=== PATIENT | female | born 1945 | race Caucasian/White ===

== ENCOUNTER 2018-08-26 08:08 | Outpatient (CLI) | payer MEDICARE, OTHER ==
--- NOTE | 2018-08-26 09:02 | BD ---
DEXA BONE MINERAL DENSITY STUDY: HISTORY: Asymptomatic menopausal state. COMPARISON: DEXA 08/10/2016. FINDINGS: Lumbar Spine: BMD (g/cm2) L1 0.723 T-Score: -2.4 -0.4 L2 0.910 T-Score: -1.1 1.1 L3 0.912 T-Score: -1.6 0.8 L4 0.922 T-Score: -1.3 1.1 L1-L4 0.876 T-Score: -1.6 0.7 WHO classification of osteopenia. Femoral Neck: 0.625 T-Score: -2.0 -0.1 Total Femur: 0.846 T-Score: -0.8 0.8 WHO classification osteopenia. TEN-YEAR FRACTURE RISK: Major osteoporotic fracture 12% and hip fracture 2.5%. Impression: Osteopenia with elevated fracture risk as above. POS: TPC
--- NOTE | 2018-08-26 09:05 | MMO ---
Bilateral MAMMO Bilat Diag [facility]. CLINICAL HISTORY: Patient is 73 years old and is seen for diagnostic exam. The patient has no family history of breast cancer. The patient has a history of Skin cancer in 2004. VIEWS: The views performed were: bilateral craniocaudal with tomosynthesis; bilateral mediolateral oblique with tomosynthesis; bilateral mediolateral with tomosynthesis; left mediolateral oblique; and left exaggerated craniocaudal. FILMS COMPARED: The present examination has been compared to prior imaging studies performed at [facility] on 10/26/2008, 03/09/2011, 06/17/2015 and 07/09/2016. MAMMOGRAM FINDINGS: There are scattered fibroglandular densities. There are no suspicious masses, suspicious calcifications, or new areas of architectural distortion. IMPRESSION: THERE IS NO MAMMOGRAPHIC EVIDENCE OF MALIGNANCY. A ROUTINE FOLLOW-UP MAMMOGRAM IN 1 YEAR IS RECOMMENDED. THE RESULTS OF THIS EXAM WERE SENT TO THE PATIENT. ACR BI-RADS Category 1 - Negative MAMMOGRAPHY NOTE: 1. A negative mammogram report should not delay a biopsy if a dominant of clinically suspicious mass is present. 2. Approximately 10% to 15% of breast cancers are not detected by mammography. 3. Adenosis and dense breasts may obscure an underlying neoplasm.
--- NOTE | 2018-08-26 10:35 | ULT ---
SOFT TISSUE ULTRASOUND LEFT AXILLA: HISTORY: Ultrasound of the left axilla was performed to assess palpable abnormality. FINDINGS: No sonographic abnormality identified. No evidence of mass, adenopathy, or cyst. IMPRESSION: Unremarkable soft tissue ultrasound left axilla. POS: OFF
== END 2018-08-26 08:09 | disposition home or self-care (01) ==
LOC: BICMAMMO 08:08
PROVIDERS: ATTEND Internal Medicine
DX: N63.21 Unspecified lump in the left breast, upper outer quadrant (principal); M79.622 Pain in left upper arm; Z78.0 Asymptomatic menopausal state; M85.859 Other specified disorders of bone density and structure, unspecified thigh
CPT/HCPCS: 76999; 77066; 77080; G0279

== ENCOUNTER 2019-08-28 10:57 | Outpatient (CLI) | payer MEDICARE ==
--- NOTE | 2019-08-28 12:14 | MMO ---
Bilateral MAMMO Bilat Screen [facility]. CLINICAL HISTORY: Patient is 74 years old and is seen for screening. The patient has no family history of breast cancer. The patient has a history of Skin cancer in 2004. VIEWS: The views performed were: bilateral craniocaudal with tomosynthesis; bilateral mediolateral oblique; and bilateral mediolateral oblique with tomosynthesis. FILMS COMPARED: The present examination has been compared to prior imaging studies performed at [facility] on 03/09/2011, 06/17/2015, 07/09/2016 and 08/26/2018. This study has been interpreted with the assistance of computer-aided detection. MAMMOGRAM FINDINGS: There are scattered fibroglandular densities. There are several stable intramammary lymph nodes seen in both breasts. There are no suspicious masses, suspicious calcifications, or new areas of architectural distortion. IMPRESSION: THERE IS NO MAMMOGRAPHIC EVIDENCE OF MALIGNANCY. A ROUTINE FOLLOW-UP MAMMOGRAM IN 1 YEAR IS RECOMMENDED. THE RESULTS OF THIS EXAM WERE SENT TO THE PATIENT. ACR BI-RADS Category 2 - Benign finding MAMMOGRAPHY NOTE: 1. A negative mammogram report should not delay a biopsy if a dominant of clinically suspicious mass is present. 2. Approximately 10% to 15% of breast cancers are not detected by mammography. 3. Adenosis and dense breasts may obscure an underlying neoplasm. Reported by: SADI GORDILLO MD Electonically Signed: [id number]
== END 2019-08-28 10:58 | disposition home or self-care (01) ==
LOC: BICMAMMO 10:57
PROVIDERS: ATTEND Internal Medicine
DX: Z12.31 Encounter for screening mammogram for malignant neoplasm of breast (principal); Z85.828 Personal history of other malignant neoplasm of skin
CPT/HCPCS: 77063; 77067

== ENCOUNTER 2019-10-19 09:20 | Outpatient (CLI) | payer MEDICARE ==
--- NOTE | 2019-10-19 10:14 | RAD ---
LEFT TIBIA FIBULA 2 VIEWS: HISTORY: Pain in lower extremity. FINDINGS: There are no signs of fracture. No bony periosteal change seen. Minimal arthritic changes of the kn ee are noted. IMPRESSION: No acute findings. POS: [facility]
== END 2019-10-19 09:21 | disposition home or self-care (01) ==
LOC: BICRAD 09:20
PROVIDERS: ATTEND Internal Medicine
DX: M79.605 Pain in left leg (principal)

== ENCOUNTER 2021-09-02 10:12 | Outpatient (CLI) | payer MEDICARE, OTHER | END 2021-09-02 10:13 | disposition home or self-care (01) | LOC: BICMAMMO 10:12 | PROVIDERS: ATTEND Internal Medicine | DX: Z12.31 Encounter for screening mammogram for malignant neoplasm of breast (principal); Z85.828 Personal history of other malignant neoplasm of skin | CPT/HCPCS: 77063; 77067 ==

== ENCOUNTER 2022-10-06 09:04 | Outpatient (CLI) | payer MEDICARE, OTHER | END 2022-10-06 09:05 | disposition home or self-care (01) | LOC: BICMAMMO 09:04 | PROVIDERS: ATTEND Internal Medicine | DX: Z13.820 Encounter for screening for osteoporosis (principal); M85.89 Other specified disorders of bone density and structure, multiple sites; Z78.0 Asymptomatic menopausal state | CPT/HCPCS: 77080 ==